=== PATIENT | male | born 1990 | race Caucasian/White ===

== ENCOUNTER 2020-02-15 09:02 | Outpatient (CLI) | payer OTHER, SELFPAY ==
--- NOTE | 2020-02-15 09:09 | XR_ITS ---
WS: [id number] CERVICAL SPINE FLEXION EXTENSION TECHNIQUE: 3 views of the cervical spine: lateral neutral, flexion and extension views. CLINICAL INFORMATION: Neck pain COMPARISON: None. FINDINGS: Straightening of the normal cervical lordosis. Normal prevertebral soft tissues. Normal C1-C2 articul ation. No instability on flexion-extension. Disc space heights and vertebral body heights are well-ma intained. Posterior elements are normal. No other significant findings. XR/XR cervical spine fl/ex [id number] IMPRESSION: Straightening of the normal cervical lordosis. No instability on flexion-extens ion.
== END 2020-02-15 09:03 | disposition home or self-care (01) ==
LOC: RADWPI 09:05
PROVIDERS: Visit Provider Licensed Practical Nurse
DX: M54.2 Cervicalgia (principal)
CPT/HCPCS: 72040